=== PATIENT | female | born 1970 | race Caucasian/White ===

== ENCOUNTER 2017-11-10 15:29 | Emergency (ER) | payer SELFPAY ==
--- NOTE | 2017-11-10 16:15 | PDOC ---
Rapid Medical Evaluation Time Seen by Provider: 11/10/17 16:12 Medical Evaluation: 11/10/17 16:13 Pt presents to the ED for rash to hands. States that it is itchy. 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 NAD Orders: Nothing Pt to proceed to ED for further evaluation Discharge Disposition - Diagnosis Rash - Referrals - Patient Instructions - Post Discharge Activity
[2017-11-10 16:17] VITALS: BP 127/65; PULSE 74; TEMP 98.6; BMI 30.7
[2017-11-10] MEDS ORDERED: DEXAMETHASONE SOD PHOSPHATE 10 MG/1 ML VIAL IM ONE (17:05)
[2017-11-10] MEDS ORDERED: DEXAMETHASONE SOD PHOSPHATE 10 MG/1 ML VIAL ONE (17:07)
--- NOTE | 2017-11-10 17:09 | PDOC ---
History of Present Illness - General Chief Complaint: Rash Stated Complaint: BLACK SPOTS ON ARM/ALLERGY Time Seen by Provider: 11/10/17 16:12 History Source: Patient Exam Limitations: No Limitations - History of Present Illness Initial Comments: 11/10/17 17:03 Patient was sent to emergency department for evaluation of itching red rash noted at school today. Patient suffers from melasma which comes and goes and agrees has or hormonal component. However today bilateral wrists became erythematous and felt she was having a type of ALLERGIC reaction. 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 Patient denies fever, recent URI, denies any swelling to lips tongue or airway if she was. Has no exposures. States has this problem intermittently and has not used any medication for relief. [facility] saw a shell sieve operator one year ago where they had been given cream without resolve of the discoloration. Timing/Duration: reports: getting worse Severity: Yes: mild, moderate Location: reports: extremities, face, hands Respiratory Risk Factors: reports: no cause identified Past History - Travel Traveled outside of the country in the last 30 days: No Close contact w/someone who was outside of country & ill: No - Past Medical History Allergies/Adverse Reactions: Allergies Allergy/AdvReac Type Severity Reaction Status Date / Time No Known Allergies Allergy Verified 11/10/17 16:14 Home Medications: Ambulatory Orders Tacrolimus 60 gm TP BID #1 oint...g. 11/10/17 - Suicide/Smoking/Psychosocial Hx Smoking History: Never smoked Hx Alcohol Use: No Drug/Substance Use Hx: No Review of Systems - Review of Systems Able to Perform ROS?: Yes Is the patient limited Indonesian proficient: Yes Constitutional: Yes: See HPI. No: Symptoms Reported, Fever, Malaise HEENTM: Yes: See HPI. No: Symptoms Reported Musculoskeletal: No: Symptoms Reported Integumentary: Yes: Symptoms Reported, See HPI, Lesions, Pallor, Rash. No: Erythema Neurological: No: Symptoms reported All Other Systems: Reviewed and Negative *Physical Exam - Vital Signs Last Vital Signs Temp Pulse Resp BP Pulse Ox 98.6 F 74 16 127/65 99 11/10/17 16:14 11/10/17 16:14 11/10/17 16:14 11/10/17 16:14 11/10/17 16:14 - Physical Exam General Appearance: Yes: Nourished, Appropriately Dressed, Apparent Distress, Mild Distress HEENT: positive: TREY, Normal ENT Inspection, TMs Normal, Pharynx Normal Neck: positive: Supple. negative: Tender Respiratory/Chest: positive: Lungs Clear Extremity: positive: Normal Capillary Refill Integumentary: positive: Normal Color, Dry, Warm, Other (darkened/melasma with excoriation and keratinization at bilateral wrists. 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 *DC/Admit/Observation/Transfer Diagnosis at time of Disposition: Contact dermatitis Qualifiers: Contact dermatitis type: unspecified Contact dermatitis trigger: unspecified trigger Qualified Code(s): L25.9 - Unspecified contact dermatitis, unspecified cause - Discharge Dispostion Disposition: HOME Condition at time of disposition: Stable Decision to Admit order: No - Referrals Referrals: Jacquelyn Smith MD [Staff Physician] - - Patient Instructions Printed Discharge Instructions: DI for Contact Dermatitis Additional Instructions: Rest, keep cool and dry- avoid strenuous activity or hot /humid environments Less hot showers, no abrasive soaps May use heavy creams like Eucerin or Cetaphil to keep skin moist May apply Aveeno, calamine lotion, [id number] hydrocortisone creams as needed for symptoms May use Benadryl at night for antihistamine, Zyrtec/ Ana or Claritin for daytime antihistamine use to help with itching May use [id number]-[id number] hydrocortisone cream on all areas except face Try to identify cause for rash and avoid exposures Followup with PMD in one week if no resolution Make appointment with shell sieve operator for evaluation when possible - Post Discharge Activity Forms/Work/School Notes: Back to Work
== END 2017-11-10 17:23 | disposition home or self-care (01) ==
LOC: JERFT 15:29
PROC: 3E0233Z Introduction of Anti-inflammatory into Muscle, Percutaneous Approach (ICD-10-PCS; principal; 2017-11-10)
DX: L25.9 Unspecified contact dermatitis, unspecified cause (principal)
CPT/HCPCS: 99281-25; J1100